=== PATIENT | male | born 1960 | race African-American/Black ===

== ENCOUNTER 2019-11-17 11:46 | Emergency (ER) | payer MEDICAID ==
[~2019-11-17] VITALS: Ht 180.3 cm; Wt 59.0 kg
[2019-11-17 11:47] VITALS: BP 205/96
[2019-11-17] MEDS ORDERED: ONDANSETRON 4 MG/2 ML VIAL IVP ONE (12:05)
[2019-11-17] MEDS ORDERED: MORPHINE SULFATE 4 MG/ML SYR IVP ONE ×2 (12:05→15:15)
[2019-11-17 12:29] LABS: HEMOGLOBIN 9.5 g/dL (12.0-18.0); MEAN CORPUSCULAR HEMOGLOBIN 32 pg (27-31); MEAN CORPUSCULAR HGB CONC 34 g/dL (33-37); MEAN CORPUSCULAR VOLUME 93.2 fL (80-94); PLATELET COUNT (AUTO) 57 K/uL (140-450); RED BLOOD CELL COUNT(AUTO) 3.01 MIL/uL (4.20-6.10); RED CELL DISTRIBUTION WIDTH 13.2 % (11.6-13.7); WHITE BLOOD COUNT (AUTO) 9.1 K/uL (4.8-10.8)
[2019-11-17 12:49] LABS: ALBUMIN 2.5 g/dL (3.4-5.0); ANION GAP 18.1 (8-16); CARBON DIOXIDE 25.3 mmol/L (21-32); POTASSIUM 4.4 mmol/L (3.5-5.1); TOTAL BILIRUBIN 1.1 mg/dL (0.0-1.0)
[2019-11-17 12:57] LABS: CREATININE 9.4 mg/dL (0.6-1.3)
[2019-11-17 13:15] LABS: LYMPHOCYTES % (MANUAL) 3 % (20-46); MONOCYTES % (MANUAL) 7 % (5-12)
[2019-11-17 14:42] VITALS: BP 215/82
== END 2019-11-17 18:30 | disposition short-term general hospital (02) ==
LOC: MED 11:46
DX: R53.1 Weakness (principal); E11.9 Type 2 diabetes mellitus without complications; I10 Essential (primary) hypertension; M79.10 Myalgia, unspecified site; N18.6 End stage renal disease; R56.9 Unspecified convulsions; N28.9 Disorder of kidney and ureter, unspecified; Z88.3 Allergy status to other anti-infective agents
CPT/HCPCS: 36415; 71045; 80053; 82550; 85025; 96374; 96375; 96376; 99284; J2270; J2405; Q0092